=== PATIENT | male | born 1995 | race Caucasian/White ===

== ENCOUNTER → 2024-09-26 | Outpatient (CLI) | payer OTHER ==
--- NOTE | 2024-09-26 22:43 | MM ---
Reason for Exam: Clinical finding. Baseline mammogram. Indicated Problems: Non-bloody discharge of both sides (Clear) for 2 Month(s). Prior Study Comparison: Patient's first Mammogram. Tissue Density: The breasts are extremely dense, which lowers the sensitivity of mammography. Findings: Analyzed By CAD. The pattern is symmetrical. No suspicious groups of microcalcifications, spiculated or lobular masses, architectural distortion or other secondary signs of malignancy are mammographically apparent. Overall Assessment: Negative, BI-RAD 1 Management: Clinical Management of both breasts in 1 year. Electronically signed and approved by: Harry Bang D.O. Radiologis
== END | disposition home or self-care (01) ==
LOC: RADMAMWWP 10:11
PROVIDERS: ATTEND Internal Medicine
DX: N64.89 Other specified disorders of breast (principal)
CPT/HCPCS: 77062; 77066